=== PATIENT | male | born 1990 | race Two or more races ===

== ENCOUNTER 2017-12-18 18:33 | Emergency (ER) | payer OTHER ==
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
[2017-12-18] MEDS ORDERED: Lidocaine/EPINEPHrine/Tetracaine Soln 1 ML TOP ONE (19:27)
[2017-12-18] MEDS ORDERED: Silver Sulfadiazine 1% Crm 50 GM Tube TOP ONE (20:32)
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
== END 2017-12-18 20:52 | disposition home or self-care (01) ==
LOC: MW.ED 18:33
DX: S60.511A Abrasion of right hand, initial encounter (principal); S50.811A Abrasion of right forearm, initial encounter; W22.8XXA Striking against or struck by other objects, initial encounter
CPT/HCPCS: 73090; 73120; 99283; A9270